=== PATIENT | male | born 1940 | race Two or more races ===

== ENCOUNTER 2017-08-05 14:49 | Outpatient (CLI) | payer OTHER | END 2017-08-05 15:07 | disposition home or self-care (01) | LOC: MRI 14:49 | DX: M43.06 Spondylolysis, lumbar region (principal); M47.26 Other spondylosis with radiculopathy, lumbar region | CPT/HCPCS: 72148 ==

== ENCOUNTER 2018-04-08 16:02 | Outpatient (CLI) | payer OTHER | END 2018-04-08 16:22 | disposition home or self-care (01) | LOC: RAD 16:02 | DX: S49.82XA Other specified injuries of left shoulder and upper arm, initial encounter (principal) ==

== ENCOUNTER → 2018-04-08 | Emergency (ER) | payer OTHER | END | disposition left against medical advice (07) | LOC: ER 14:52 | DX: Z53.20 Procedure and treatment not carried out because of patient's decision for unspecified reasons (principal) ==

== ENCOUNTER 2018-04-10 08:23 | Outpatient (CLI) | payer OTHER | END 2018-04-10 08:34 | disposition home or self-care (01) | LOC: RAD 08:23 | DX: S90.32XA Contusion of left foot, initial encounter (principal); S42.225A 2-part nondisplaced fracture of surgical neck of left humerus, initial encounter for closed fracture ==

== ENCOUNTER 2018-04-12 16:07 | Outpatient (CLI) | payer OTHER | END 2018-04-12 16:13 | disposition home or self-care (01) | LOC: TOM 16:07 | DX: S42.225A 2-part nondisplaced fracture of surgical neck of left humerus, initial encounter for closed fracture (principal) ==

== ENCOUNTER 2018-05-04 14:13 | Outpatient (CLI) | payer OTHER | END 2018-05-04 14:22 | disposition home or self-care (01) | LOC: RAD 501 14:13 | DX: S60.212A Contusion of left wrist, initial encounter (principal) ==

== ENCOUNTER 2018-07-20 13:29 | Outpatient (CLI) | payer OTHER | END 2018-07-20 13:36 | disposition home or self-care (01) | LOC: RAD 501 13:29 | DX: M54.2 Cervicalgia (principal) ==

== ENCOUNTER 2018-07-29 14:59 | Outpatient (CLI) | payer OTHER | END 2018-07-29 15:07 | disposition home or self-care (01) | LOC: RAD 501 14:59 | DX: M25.511 Pain in right shoulder (principal); M25.512 Pain in left shoulder ==

== ENCOUNTER → 2018-08-13 | Outpatient (CLI) | payer OTHER | END | disposition home or self-care (01) | LOC: NUCLEAR 10:17 | DX: M81.0 Age-related osteoporosis without current pathological fracture (principal) ==

== ENCOUNTER → 2018-08-17 | Outpatient (CLI) | payer OTHER | END | disposition home or self-care (01) | LOC: SONOGRAMA 09:44 → MAMO-SONO 11:15 | DX: M25.511 Pain in right shoulder (principal) ==

== ENCOUNTER 2018-08-26 07:23 | Outpatient (CLI) | payer OTHER | END 2018-08-26 12:00 | disposition HB | LOC: LAB 07:23 | DX: E55.9 Vitamin D deficiency, unspecified (principal); M85.88 Other specified disorders of bone density and structure, other site; E21.3 Hyperparathyroidism, unspecified; E88.89 Other specified metabolic disorders; M81.8 Other osteoporosis without current pathological fracture; E83.42 Hypomagnesemia; E56.1 Deficiency of vitamin K ==

== ENCOUNTER 2018-08-26 08:18 | Outpatient (CLI) | payer OTHER | END 2018-08-26 08:34 | disposition home or self-care (01) | LOC: TOM 08:18 | DX: M19.012 Primary osteoarthritis, left shoulder (principal) | CPT/HCPCS: 73202; Q9965 ==

== ENCOUNTER 2020-06-05 10:57 | Outpatient (CLI) | payer OTHER | END 2020-06-05 11:09 | disposition home or self-care (01) | LOC: NUCLEAR 10:57 | PROVIDERS: ATTEND Chiropractor | DX: I70.90 Unspecified atherosclerosis (principal); I73.9 Peripheral vascular disease, unspecified ==

== ENCOUNTER 2020-06-06 11:14 | Outpatient (CLI) | payer OTHER | END 2020-06-06 11:22 | disposition home or self-care (01) | LOC: NUCLEAR 11:14 | PROVIDERS: ATTEND Chiropractor | DX: I87.2 Venous insufficiency (chronic) (peripheral) (principal); I70.90 Unspecified atherosclerosis; I73.9 Peripheral vascular disease, unspecified ==

== ENCOUNTER 2020-06-06 12:12 | Outpatient (CLI) | payer OTHER | END 2020-06-06 12:16 | disposition home or self-care (01) | LOC: RAD 12:12 | PROVIDERS: ATTEND Chiropractor | DX: M51.37 Other intervertebral disc degeneration, lumbosacral region (principal); M54.5 Low back pain ==

== ENCOUNTER 2020-11-02 11:53 | Outpatient (CLI) | payer OTHER | END 2020-11-02 12:06 | disposition home or self-care (01) | LOC: NUCLEAR 11:53 | PROVIDERS: ATTEND Internal Medicine | DX: M81.0 Age-related osteoporosis without current pathological fracture (principal) ==

== ENCOUNTER 2022-03-13 08:00 | Outpatient (CLI) | payer OTHER | END 2022-03-13 08:01 | disposition home or self-care (01) | LOC: TOM 08:00 | PROVIDERS: ATTEND Internal Medicine | DX: R10.30 Lower abdominal pain, unspecified (principal) | CPT/HCPCS: 74177; Q9965 ==

== ENCOUNTER 2022-07-28 12:57 | Outpatient (CLI) | payer OTHER | END 2022-07-28 12:59 | disposition home or self-care (01) | LOC: NUCLEAR 12:57 | PROVIDERS: ATTEND Internal Medicine | DX: M81.0 Age-related osteoporosis without current pathological fracture (principal) ==

== ENCOUNTER 2024-05-19 15:37 | Outpatient (CLI) | payer OTHER ==
[2024-05-19 16:40] LABS: ALBUMIN 3.9 gm/dL (3.4-5.0); BILIRUBIN TOTAL 0.73 mg/dL (0.3-1.2); CALCIUM 9.4 mg/dL (8.5-10.1); CREATININE SERUM 0.96 mg/dL (0.70-1.30); GFR 74.8; GLOBULINA 3.3 G/DL (2.4-3.5); POTASSIUM 4.22 mEq/L (3.5-5.1); TOTAL PROTEIN 7.2 gm/dL (6.4-8.2)
[2024-05-20] MEDS ORDERED: CARDURA XL8 MG PO (12:10)
[2024-05-20] MEDS ORDERED: COZAAR100 MG PO (12:10)
== END 2024-05-19 15:41 | disposition home or self-care (01) ==
LOC: LAB 15:37
PROVIDERS: ATTEND Otolaryngology
DX: R42 Dizziness and giddiness (principal)

== ENCOUNTER 2024-05-20 07:38 | Outpatient (CLI) | payer OTHER ==
[2024-05-20] MEDS ORDERED: CARDURA XL8 MG PO (12:10)
[2024-05-20] MEDS ORDERED: COZAAR100 MG PO (12:10)
== END 2024-05-20 07:52 | disposition home or self-care (01) ==
LOC: TOM 07:38
PROVIDERS: ATTEND Otolaryngology
DX: R05.1 Acute cough (principal); R05.2 Subacute cough
CPT/HCPCS: 71270; Q9965

== ENCOUNTER 2024-05-20 11:45 | Inpatient (IN) | payer OTHER ==
[~2024-05-20] VITALS: Ht 165.1 cm; Wt 47.6 kg
--- NOTE | 2024-05-20 12:07 | NUR ---
SE RECIBE PTE ALERTA Y ORIENTADO X3 EL MISMO REFIERE QUE DESDE HACE 1 SEMANA EMPEZO A FATIGARSE Y DR EZEKIEL RODRIGEZ LE ENVIO PLACAS EN DONDE SE OBSERVA LIQUIDO EN PULMON. PACIENTE SATURANDO 93% EN TRIAGE. SE REALIZA EKG POR PROTOCOLO.
[2024-05-20] MEDS ORDERED: CARDURA XL8 MG PO (12:10)
[2024-05-20] MEDS ORDERED: COZAAR100 MG PO (12:10)
[2024-05-20 13:32] LABS: HEMATOCRIT 37.6 % (39.0-48.0); HEMOGLOBIN 12.8 g/dL (13-16.00); MEAN CELL VOLUME 95.2 fL (80.0-100.00); MEAN CORPUSCULAR HEMOGLOBIN 32.3 pg (27.00-32.0); MEAN CORPUSCULAR HGB CONC 33.9 g/dl (32.0-36.0); PLATELET COUNT 195 K/uL (150-450); RED BLOOD COUNT 3.95 M/uL (4.00-6.00); RED CELL DISTRIBUTION WIDTH 13.2 % (11.5-14.5)
--- NOTE | 2024-05-20 13:36 | NUR ---
SE RECIBE PTE MASCULINO DE 83 YRS ALERTA CONCIENTE Y TRANQUILO POR JOAN DEL CHELSIE DELA CRUZ LO RECIBO EN ICU-2 SE LE CONECTRA A MONITOR CARDICO Y SE LE COLOCA CANULA NASAL A 2 LTRS. PTE ES MANEJADO POR MS. ZACH MENDOZA EN AREA DE OBSERVACION LA CUAL LO TRANSFIERE A LA UNIDAD YA PTE CON TRATAMIENTO MANEJADO DE LEANDRO DE MUESTRA Y CANALIZADO, SE MANTIENE EN ESPREA DE LA LEANDRO DE RX PORTABLE. SE LE LEANDRO S/V Y SE MANTIENE BAJO OBSERVACION.
[2024-05-20 13:52] LABS: INR 1.05; PARTIAL THROMBOPLASTIN TIME 26.8 SECONDS (22.0-34.0); PROTHROMBIN TIME 11.4 SECONDS (9.0-11.5)
[2024-05-20 14:08] LABS: CALCIUM 9.4 mg/dL (8.5-10.1); CREATININE SERUM 1.18 mg/dL (0.70-1.30); GFR 58.95; POTASSIUM 4.14 mEq/L (3.5-5.1)
[2024-05-20] MEDS ORDERED: IRON FUM,PS/FOLIC/BCOMP,C NO.9 1 CAP CAPSULE PO SCH (14:54)
[2024-05-20] MEDS ORDERED: FUROsemide 20 MG/2 ML VIAL IV SCH (14:59)
[2024-05-20 16:43] LABS: LDH 163 U/L (87-241)
[2024-05-20 16:55] LABS: C-REACTIVE PROTEIN < 0.29 MG/DL (0.00-0.29)
[2024-05-20 17:15] LABS: URINE APPEARANCE Clear; URINE BILIRRUBIN Negative (NEGATIVE); URINE BLOOD NHT; URINE COLOR Yellow; URINE GLUCOSE Negative (NEGATIVE); URINE KETONE Negative (NEGATIVE); URINE LEUKOCYTE Trace; URINE NITRATE Negative; URINE PROTEIN Negative (NEGATIVE)
[2024-05-20 17:18] LABS: URINE BACTERIA 22.6 uL (0.0-1933); URINE EPITHELIAL CELLS 3.5 uL (0.0-38.8); URINE RBC 28.5 uL (0.0-20.8); URINE WBC 57.3 uL (0.0-23.2)
[2024-05-20 17:56] VITALS: BP 111/85
[2024-05-20 19:18] VITALS: O2SAT 96
[2024-05-20 22:34] LABS: ABG PH 7.404 (7.35-7.45); ABG PO2 79.3 mmHg (80-100); ABG pCO2 42.3 mmHg (35-45); BASE EXCESS 0.9 mmol/l; BICARBONATE 25.9 mmol/l (23-25); SaO2 95.8 %; Tco2 27.2 mmol/l
[2024-05-20 22:35] LABS: allen test SATISFACTORY; o2 28 %; puncture site RADIAL LEFT
[2024-05-20 22:47] VITALS: O2SAT 96
[2024-05-20 23:15] VITALS: BP 101/74; O2SAT 98
[2024-05-21 06:07] LABS: HEMATOCRIT 36.5 % (39.0-48.0); HEMOGLOBIN 12.6 g/dL (13-16.00); MEAN CELL VOLUME 94.9 fL (80.0-100.00); MEAN CORPUSCULAR HEMOGLOBIN 32.8 pg (27.00-32.0); MEAN CORPUSCULAR HGB CONC 34.6 g/dl (32.0-36.0); PLATELET COUNT 194 K/uL (150-450); RED BLOOD COUNT 3.85 M/uL (4.00-6.00); RED CELL DISTRIBUTION WIDTH 13.4 % (11.5-14.5)
[2024-05-21 06:10] LABS: ABG PH 7.484 (7.35-7.45); ABG pCO2 34.1 mmHg (35-45)
[2024-05-21 06:11] LABS: ABG PO2 75.7 mmHg (80-100); BASE EXCESS 2.1 mmol/l; BICARBONATE 25.1 mmol/l (23-25); SaO2 96.2 %; Tco2 26.1 mmol/l; allen test SATISFACTORY; o2 28 %; puncture site RADIAL RIGHT
[2024-05-21 07:25] VITALS: BP 100/52; O2SAT 95
[2024-05-21 08:23] LABS: BILIRUBIN TOTAL 0.74 mg/dL (0.3-1.2); CALCIUM 8.9 mg/dL (8.5-10.1); CREATININE SERUM 1.02 mg/dL (0.70-1.30); GFR 69.75; GLOBULINA 3.3 G/DL (2.4-3.5); MAGNESIUM 2.2 mg/dL (1.8-2.4); PHOSPHOROUS 3.7 mg/dL (2.5-4.9); POTASSIUM 3.92 mEq/L (3.5-5.1); TOTAL PROTEIN 7.3 gm/dL (6.4-8.2)
[2024-05-21] MEDS ORDERED: ENOXAPARIN SODIUM 40 MG/0.4 ML SYRINGE SUBCUTANEO SCH (09:00)
[2024-05-21] MEDS ORDERED: LOSARTAN POTASSIUM 100 MG TABLET PO SCH (09:00)
[2024-05-21] MEDS ORDERED: 0.9 % SODIUM CHLORIDE 1,000 ML IV SCH (09:00)
[2024-05-21] MEDS ORDERED: PANTOPRAZOLE SODIUM 40 MG TABLET.DR PO SCH (09:00)
[2024-05-21 12:00] VITALS: BP 113/86; O2SAT 95
[2024-05-21 15:00] VITALS: BP 109/72; BP 114/70; O2SAT 93; O2SAT 94
[2024-05-21] MEDS ORDERED: FUROsemide 20 MG/2 ML VIAL IV SCH (18:59)
[2024-05-21 19:00] VITALS: BP 112/70; O2SAT 93
[2024-05-21 23:06] VITALS: BP 87/70; O2SAT 99
[2024-05-22] VITALS (13 sets, daily range): BP systolic 86–148; BP diastolic 55–76; O2SAT 94–100
[2024-05-22] MEDS ORDERED: LIDOCAINE HCL 1% 10ML VIAL PERCUT ONE (08:30)
[2024-05-22] MEDS ORDERED: CEFAZOLIN SODIUM 1,000 MG VIAL IV STA (11:51)
[2024-05-22] MEDS ORDERED: fentaNYL CITRATE 50 MCG/ML AMPUL IJ ONE (12:15)
[2024-05-22] MEDS ORDERED: MIDAZOLAM HCL/PF 5 MG/ML VIAL IV ONE (12:15)
[2024-05-22 14:20] LABS: TP PLEURAL FLUID 5.6 g/dl
[2024-05-22 15:09] LABS: PLEURAL FLUID APPEARANCE TURBID; PLEURAL FLUID COLOR RED-BLOODY
[2024-05-22 15:26] LABS: MONONUCLEAR 14 %; POLYMORPHONUCLEAR 86 %
[2024-05-22] MEDS ORDERED: OxyCODONE HCL/APAP UD (PERCOCET) PO PRN (19:45)
[2024-05-23] VITALS (16 sets, daily range): BP systolic 80–126; BP diastolic 58–81; O2SAT 98–100
[2024-05-23] MEDS ORDERED: RINGERS SOLUTION,LACTATED 1,000 ML IV STA ×2 (00:23→20:37)
[2024-05-23 06:26] LABS: HEMATOCRIT 35.8 % (39.0-48.0); HEMOGLOBIN 12.4 g/dL (13-16.00); MEAN CELL VOLUME 94.5 fL (80.0-100.00); MEAN CORPUSCULAR HEMOGLOBIN 32.7 pg (27.00-32.0); MEAN CORPUSCULAR HGB CONC 34.6 g/dl (32.0-36.0); PLATELET COUNT 193 K/uL (150-450); RED BLOOD COUNT 3.79 M/uL (4.00-6.00); RED CELL DISTRIBUTION WIDTH 13.3 % (11.5-14.5)
[2024-05-23 06:56] LABS: ABG PH 7.429 (7.35-7.45); ABG PO2 106.6 mmHg (80-100); ABG pCO2 49.2 mmHg (35-45)
[2024-05-23 06:57] LABS: BASE EXCESS 6.3 mmol/l; BICARBONATE 31.9 mmol/l (23-25); SaO2 98.3 %; Tco2 33.4 mmol/l; o2 44 %
[2024-05-23 06:58] LABS: allen test SATISFACTORY; puncture site RADIAL RIGHT
[2024-05-23 07:19] LABS: ALBUMIN 2.9 gm/dL (3.4-5.0); BILIRUBIN TOTAL 0.94 mg/dL (0.3-1.2); CALCIUM 8.3 mg/dL (8.5-10.1); CREATININE SERUM 0.78 mg/dL (0.70-1.30); GFR 95.06; GLOBULINA 2.8 G/DL (2.4-3.5); MAGNESIUM 2.2 mg/dL (1.8-2.4); PHOSPHOROUS 3.3 mg/dL (2.5-4.9); POTASSIUM 3.82 mEq/L (3.5-5.1); TOTAL PROTEIN 5.7 gm/dL (6.4-8.2)
[2024-05-24] VITALS (13 sets, daily range): BP systolic 96–120; BP diastolic 65–86; O2SAT 95–100
[2024-05-24 07:01] LABS: HEMATOCRIT 41.7 % (39.0-48.0); HEMOGLOBIN 14.6 g/dL (13-16.00); MEAN CELL VOLUME 94.3 fL (80.0-100.00); MEAN CORPUSCULAR HGB CONC 34.9 g/dl (32.0-36.0); PLATELET COUNT 237 K/uL (150-450); RED BLOOD COUNT 4.42 M/uL (4.00-6.00); RED CELL DISTRIBUTION WIDTH 13.5 % (11.5-14.5)
[2024-05-24 07:31] LABS: ALBUMIN 3.6 gm/dL (3.4-5.0); BILIRUBIN TOTAL 0.92 mg/dL (0.3-1.2); CALCIUM 9.3 mg/dL (8.5-10.1); CREATININE SERUM 1.03 mg/dL (0.70-1.30); GFR 68.97; MAGNESIUM 2.4 mg/dL (1.8-2.4); PHOSPHOROUS 2.7 mg/dL (2.5-4.9); POTASSIUM 4.08 mEq/L (3.5-5.1); TOTAL PROTEIN 7.6 gm/dL (6.4-8.2)
[2024-05-24 10:04] LABS: ABG PH 7.448 (7.35-7.45); ABG PO2 76.2 mmHg (80-100); ABG pCO2 43.9 mmHg (35-45); BICARBONATE 29.7 mmol/l (23-25); SaO2 95.9 %; Tco2 31.1 mmol/l
[2024-05-24 10:05] LABS: allen test SATISFACTORY; o2 28 %; puncture site RADIAL RIGHT
[2024-05-24] MEDS ORDERED: ENALAPRILAT DIHYDRATE 1.25 MG/ML VIAL IV PRN (10:30)
[2024-05-25] VITALS (8 sets, daily range): BP systolic 115–127; BP diastolic 73–79; O2SAT 88–100
[2024-05-26] VITALS (8 sets, daily range): BP systolic 108–128; BP diastolic 78–82; O2SAT 89–100
[2024-05-26 07:24] LABS: HEMATOCRIT 36.6 % (39.0-48.0); MEAN CELL VOLUME 92.8 fL (80.0-100.00); MEAN CORPUSCULAR HGB CONC 35.6 g/dl (32.0-36.0); PLATELET COUNT 232 K/uL (150-450); RED BLOOD COUNT 3.95 M/uL (4.00-6.00); RED CELL DISTRIBUTION WIDTH 13.2 % (11.5-14.5)
[2024-05-26 08:26] LABS: ALBUMIN 3.3 gm/dL (3.4-5.0); BILIRUBIN TOTAL 0.7 mg/dL (0.3-1.2); CREATININE SERUM 0.88 mg/dL (0.70-1.30); GFR 82.7; MAGNESIUM 2.2 mg/dL (1.8-2.4); POTASSIUM 3.96 mEq/L (3.5-5.1); TOTAL PROTEIN 6.3 gm/dL (6.4-8.2)
[2024-05-26] MEDS ORDERED: LACTULOSE 20 G/30 ML BLIST.PACK PO STA (14:48)
[2024-05-26] MEDS ORDERED: MINERAL OIL 30 ML BLIST.PACK PO STA (14:48)
[2024-05-26] MEDS ORDERED: MAGNESIUM HYDROXIDE 30 ML BLIST.PACK PO STA (14:48)
[2024-05-26] MEDS ORDERED: DOCUSATE SODIUM 100MG CAP PO SCH (17:00)
[2024-05-27] VITALS: BP 176/60; O2SAT 98
[2024-05-27 08:57] VITALS: BP 132/88; O2SAT 99
[2024-05-27] MEDS ORDERED: NA PHOS,M-B/NA PHOS,DI-BA 1 BOTTLE ENEMA RECTAL NR (15:00)
[2024-05-27] MEDS ORDERED: MAGNESIUM HYDROXIDE 400 MG/5 ML ML PO STA (18:16)
[2024-05-27] MEDS ORDERED: MINERAL OIL 30 ML BLIST.PACK PO STA (18:17)
[2024-05-27 18:34] VITALS: BP 141/85; O2SAT 95
[2024-05-28 02:16] VITALS: BP 132/88; O2SAT 95
[2024-05-28 09:54] VITALS: BP 108/76; O2SAT 96
[2024-05-28] MEDS ORDERED: DOCUSATE SODIUM 100MG CAP PO SCH (17:00)
[2024-05-28 17:29] VITALS: BP 122/85; O2SAT 97
[2024-05-28] MEDS ORDERED: GABAPENTIN 300 MG CAPSULE PO SCH (19:00)
[2024-05-29 01:29] VITALS: BP 118/75; O2SAT 96
[2024-05-29 10:35] VITALS: BP 131/77; O2SAT 98
[2024-05-29] MEDS ORDERED: LIDOCAINE 5% 1 PATCH ADH. TOP SCH (17:00)
[2024-05-29 17:58] VITALS: BP 105/72; O2SAT 95
[2024-05-30 01:51] VITALS: BP 124/83; O2SAT 98
[2024-05-30 09:32] VITALS: BP 134/78; O2SAT 96
[2024-05-30 11:56] LABS: HEMOGLOBIN 13.3 g/dL (13-16.00); MEAN CELL VOLUME 94.2 fL (80.0-100.00); MEAN CORPUSCULAR HEMOGLOBIN 32.1 pg (27.00-32.0); MEAN CORPUSCULAR HGB CONC 34.1 g/dl (32.0-36.0); PLATELET COUNT 291 K/uL (150-450); RED BLOOD COUNT 4.14 M/uL (4.00-6.00); RED CELL DISTRIBUTION WIDTH 13.5 % (11.5-14.5)
[2024-05-30 12:32] LABS: ALBUMIN 2.9 gm/dL (3.4-5.0); BILIRUBIN TOTAL 1.03 mg/dL (0.3-1.2); CALCIUM 8.9 mg/dL (8.5-10.1); CREATININE SERUM 2.67 mg/dL (0.70-1.30); GFR 22.98; GLOBULINA 3.5 G/DL (2.4-3.5); MAGNESIUM 2.8 mg/dL (1.8-2.4); POTASSIUM 4.66 mEq/L (3.5-5.1); TOTAL PROTEIN 6.4 gm/dL (6.4-8.2)
[2024-05-30] MEDS ORDERED: SODIUM CHLORIDE IV STA (18:26)
[2024-05-30] MEDS ORDERED: 0.9 % SODIUM CHLORIDE 1,000 ML IV SCH (18:30)
[2024-05-30 19:04] VITALS: BP 113/64
[2024-05-31 01:52] VITALS: BP 110/72; O2SAT 96
[2024-05-31 06:01] LABS: HEMATOCRIT 37.2 % (39.0-48.0); HEMOGLOBIN 12.9 g/dL (13-16.00); MEAN CELL VOLUME 94.6 fL (80.0-100.00); MEAN CORPUSCULAR HEMOGLOBIN 32.8 pg (27.00-32.0); MEAN CORPUSCULAR HGB CONC 34.7 g/dl (32.0-36.0); PLATELET COUNT 273 K/uL (150-450); RED BLOOD COUNT 3.93 M/uL (4.00-6.00); RED CELL DISTRIBUTION WIDTH 13.4 % (11.5-14.5)
[2024-05-31 06:51] LABS: ALBUMIN 2.8 gm/dL (3.4-5.0); BILIRUBIN TOTAL 0.88 mg/dL (0.3-1.2); CALCIUM 8.7 mg/dL (8.5-10.1); CREATININE SERUM 2.72 mg/dL (0.70-1.30); GFR 22.49; GLOBULINA 3.6 G/DL (2.4-3.5); POTASSIUM 4.38 mEq/L (3.5-5.1); TOTAL PROTEIN 6.4 gm/dL (6.4-8.2)
[2024-05-31] MEDS ORDERED: ENOXAPARIN SODIUM 30 MG/0.3 ML SYRINGE SUBCUTANEO SCH (09:00)
[2024-05-31 09:28] VITALS: BP 147/90; O2SAT 99
[2024-05-31 18:27] VITALS: BP 108/75
[2024-06-01 03:07] VITALS: BP 104/67; O2SAT 97
[2024-06-01 07:21] LABS: URINE APPEARANCE Turbid; URINE BILIRRUBIN Negative (NEGATIVE); URINE BLOOD Large; URINE COLOR Dark Yellow; URINE GLUCOSE Negative (NEGATIVE); URINE KETONE Negative (NEGATIVE); URINE LEUKOCYTE Large; URINE NITRATE Negative
[2024-06-01 07:25] LABS: URINE BACTERIA 1876.1 uL (0.0-1933); URINE CAST 10.53 uL (0.0-1.40); URINE EPITHELIAL CELLS 25.2 uL (0.0-38.8); URINE RBC 2726.4 uL (0.0-20.8); URINE WBC 3140.3 uL (0.0-23.2)
[2024-06-01 07:49] LABS: HEMATOCRIT 33.7 % (39.0-48.0); HEMOGLOBIN 11.4 g/dL (13-16.00); MEAN CELL VOLUME 95.2 fL (80.0-100.00); MEAN CORPUSCULAR HEMOGLOBIN 32.2 pg (27.00-32.0); MEAN CORPUSCULAR HGB CONC 33.9 g/dl (32.0-36.0); PLATELET COUNT 250 K/uL (150-450); RED BLOOD COUNT 3.54 M/uL (4.00-6.00); RED CELL DISTRIBUTION WIDTH 13.1 % (11.5-14.5)
[2024-06-01 07:53] LABS: ERYTHROCYTE SEDIMENTATION RATE 35 mm/hr
[2024-06-01 07:54] LABS: URINE CRYSTALS MANY /HPF; URINE PROTEIN 100 (NEGATIVE)
[2024-06-01 09:27] VITALS: BP 102/61; O2SAT 100
[2024-06-01 09:31] LABS: ALBUMIN 2.3 gm/dL (3.4-5.0); BILIRUBIN TOTAL 0.7 mg/dL (0.3-1.2); CALCIUM 7.8 mg/dL (8.5-10.1); CREATININE SERUM 1.74 mg/dL (0.70-1.30); GFR 37.66; MAGNESIUM 2.8 mg/dL (1.8-2.4); PHOSPHOROUS 3.5 mg/dL (2.5-4.9); POTASSIUM 4.28 mEq/L (3.5-5.1); TOTAL PROTEIN 5.3 gm/dL (6.4-8.2)
[2024-06-01] MEDS ORDERED: TAMSULOSIN HCL 0.4 MG CAP PO SCH (18:05)
[2024-06-01] MEDS ORDERED: FINASTERIDE 5 MG TABLET PO SCH (18:06)
[2024-06-01 18:29] VITALS: BP 140/64; O2SAT 96
[2024-06-02 03:09] VITALS: BP 105/58; O2SAT 96
[2024-06-02 07:12] LABS: CALCIUM 7.9 mg/dL (8.5-10.1); CREATININE SERUM 1.12 mg/dL (0.70-1.30); GFR 62.61; POTASSIUM 4.03 mEq/L (3.5-5.1)
[2024-06-02 09:22] VITALS: BP 106/65; O2SAT 98
[2024-06-02] MEDS ORDERED: RINGERS SOLUTION,LACTATED 1,000 ML IV SCH (14:30)
[2024-06-02] MEDS ORDERED: CEFTRIAXONE SODIUM 2,000 MG VIAL IV SCH (17:00)
[2024-06-02 18:44] VITALS: BP 110/77; O2SAT 97
[2024-06-03 03:33] VITALS: BP 114/67; O2SAT 98
[2024-06-03 08:37] LABS: HEMOGLOBIN 10.9 g/dL (13-16.00); MEAN CELL VOLUME 93.2 fL (80.0-100.00); MEAN CORPUSCULAR HEMOGLOBIN 32.7 pg (27.00-32.0); MEAN CORPUSCULAR HGB CONC 35.1 g/dl (32.0-36.0); PLATELET COUNT 269 K/uL (150-450); RED BLOOD COUNT 3.32 M/uL (4.00-6.00); RED CELL DISTRIBUTION WIDTH 12.9 % (11.5-14.5)
[2024-06-03 09:03] VITALS: BP 126/75; O2SAT 98
[2024-06-03 09:34] LABS: ALBUMIN 2.2 gm/dL (3.4-5.0); BILIRUBIN TOTAL 0.41 mg/dL (0.3-1.2); CALCIUM 7.7 mg/dL (8.5-10.1); CREATININE SERUM 0.87 mg/dL (0.70-1.30); GFR 83.8; MAGNESIUM 2.1 mg/dL (1.8-2.4); POTASSIUM 3.58 mEq/L (3.5-5.1); TOTAL PROTEIN 5.2 gm/dL (6.4-8.2)
[2024-06-03 09:50] LABS: PHOSPHOROUS 1.7 mg/dL (2.5-4.9)
[2024-06-03] MEDS ORDERED: POTASSIUM PHOS,M-BASIC-D-BASIC 3 MM/ML VIAL IV SCH (13:00)
[2024-06-03 16:50] VITALS: BP 116/76; O2SAT 95
[2024-06-04 02:53] VITALS: BP 126/78; O2SAT 99
[2024-06-04 10:20] VITALS: BP 128/83; O2SAT 96
[2024-06-04 19:50] VITALS: BP 140/86
[2024-06-04] MEDS ORDERED: RINGERS SOLUTION,LACTATED 1,000 ML IV SCH (20:15)
[2024-06-05 01:57] VITALS: BP 111/55; O2SAT 97
[2024-06-05 07:45] LABS: ALBUMIN 2.5 gm/dL (3.4-5.0); BILIRUBIN TOTAL 0.34 mg/dL (0.3-1.2); CREATININE SERUM 1.14 mg/dL (0.70-1.30); GFR 61.35; GLOBULINA 3.2 G/DL (2.4-3.5); MAGNESIUM 1.9 mg/dL (1.8-2.4); PHOSPHOROUS 2.8 mg/dL (2.5-4.9); POTASSIUM 4.37 mEq/L (3.5-5.1); TOTAL PROTEIN 5.7 gm/dL (6.4-8.2)
[2024-06-05 07:56] LABS: HEMATOCRIT 33.1 % (39.0-48.0); HEMOGLOBIN 11.7 g/dL (13-16.00); MEAN CELL VOLUME 93.6 fL (80.0-100.00); MEAN CORPUSCULAR HGB CONC 35.2 g/dl (32.0-36.0); PLATELET COUNT 334 K/uL (150-450); RED BLOOD COUNT 3.54 M/uL (4.00-6.00); RED CELL DISTRIBUTION WIDTH 12.9 % (11.5-14.5)
[2024-06-05 08:00] VITALS: BP 143/80; O2SAT 96
[2024-06-05] MEDS ORDERED: levoFLOXacin 500 MG TABLET PO STA (14:59)
[2024-06-05] MEDS ORDERED: INTESTINEX680 M1 PO (15:16)
[2024-06-05] MEDS ORDERED: LEVOFLOXACIN250 MG PO (15:16)
[2024-06-05] MEDS ORDERED: INTEGRA PLUS C1 EACH PO (15:17)
[2024-06-05] MEDS ORDERED: PANTOPRAZOLE SO40 MG PO (15:17)
[2024-06-05] MEDS ORDERED: TAMS0.4C PO (15:17)
[2024-06-05] MEDS ORDERED: FINASTERIDE5 MG PO (15:18)
== END 2024-06-05 15:57 | disposition home or self-care (01) | DRG 187 ==
LOC: ER 11:45 → ICU-2 14:49 → SEC-K 05-24 10:41 → MEDJ 05-24 16:18
PROVIDERS: Emergency Medicine; Internal Medicine; Student in an Organized Health Care Education/Training Program; ADMIT Internal Medicine; ATTEND Internal Medicine
PROC: B246ZZZ Ultrasonography of Right and Left Heart (ICD-10-PCS; principal; 2024-05-20)
PROC: 5A0935A Assistance with Respiratory Ventilation, Less than 24 Consecutive Hours, High Flow/Velocity Cannula (ICD-10-PCS; 2024-05-22)
PROC: 0W9B3ZZ Drainage of Left Pleural Cavity, Percutaneous Approach (ICD-10-PCS; 2024-05-22)
PROC: BB24YZZ Computerized Tomography (CT Scan) of Bilateral Lungs using Other Contrast (ICD-10-PCS; 2024-05-24)
PROC: 4A12X4Z Monitoring of Cardiac Electrical Activity, External Approach (ICD-10-PCS; 2024-05-24)
PROC: BH4BZZZ Ultrasonography of Chest Wall (ICD-10-PCS; 2024-05-29)
PROC: BW20ZZZ Computerized Tomography (CT Scan) of Abdomen (ICD-10-PCS; 2024-05-30)
DX: J94.8 Other specified pleural conditions (principal); N17.8 Other acute kidney failure; N41.0 Acute prostatitis; J90 Pleural effusion, not elsewhere classified; R09.02 Hypoxemia; D64.9 Anemia, unspecified; Z87.891 Personal history of nicotine dependence; I10 Essential (primary) hypertension

== ENCOUNTER 2024-08-16 13:36 | Outpatient (CLI) | payer OTHER ==
[~2024-08-16 13:36] MED LIST: CARDURA XL8 MG PO; COZAAR100 MG PO; FINASTERIDE5 MG PO; INTEGRA PLUS C1 EACH PO; INTESTINEX680 M1 PO; LEVOFLOXACIN250 MG PO; PANTOPRAZOLE SO40 MG PO; TAMS0.4C PO
== END 2024-08-16 13:38 | disposition home or self-care (01) ==
LOC: RAD 13:36
PROVIDERS: ATTEND Internal Medicine
DX: I10 Essential (primary) hypertension (principal); J90 Pleural effusion, not elsewhere classified

== ENCOUNTER 2025-03-01 11:47 | Outpatient (CLI) | payer OTHER | END 2025-03-01 12:02 | disposition home or self-care (01) | LOC: TOM 11:47 | PROVIDERS: ATTEND Internal Medicine | DX: R06.00 Dyspnea, unspecified (principal); J90 Pleural effusion, not elsewhere classified ==